=== PATIENT | female | born 2000 | race Caucasian/White ===

== ENCOUNTER 2020-09-24 15:32 | Inpatient (IN) | payer OTHER ==
[~2020-09-24] VITALS: Ht 170.2 cm; Wt 68.0 kg
[2020-09-24 17:07] LABS: HEMOGLOBIN 11.4 gm/dl (12.3-15.3); RED BLOOD COUNT 3.27 M/UL (4.00-5.10); WHITE BLOOD COUNT 9.9 K/UL (4.5-11.0)
[2020-09-24] MEDS ORDERED: PRENATAL VITAM1 EAC3 PO (19:46)
[2020-09-24] MEDS ORDERED: FERROUS SULFAT325 MG PO (19:47)
[2020-09-24] MEDS ORDERED: FOLIC ACID1 MG PO (19:48)
[2020-09-25] MEDS ORDERED: IBUPROFEN800 MG PO (13:41)
[2020-09-25] MEDS ORDERED: HYDROCODON-ACE1 EAC4 PO (13:41)
[2020-09-25] MEDS ORDERED: DOCUSATE SODIU100 MG PO (13:41)
[2020-09-26 06:41] LABS: HEMOGLOBIN 10.8 gm/dl (12.3-15.3)
== END 2020-09-27 16:58 | disposition home or self-care (01) | DRG 807 ==
LOC: GENOP 15:32 → OB 16:17
PROVIDERS: Obstetrics & Gynecology; ADMIT Obstetrics & Gynecology
PROC: 0U7C7ZZ Dilation of Cervix, Via Natural or Artificial Opening (ICD-10-PCS; principal; 2020-09-24)
PROC: 4A1HX4Z Monitoring of Products of Conception, Cardiac Electrical Activity, External Approach (ICD-10-PCS; 2020-09-24)
PROC: 10E0XZZ Delivery of Products of Conception, External Approach (ICD-10-PCS; 2020-09-25)
PROC: 0HQ9XZZ Repair Perineum Skin, External Approach (ICD-10-PCS; 2020-09-25)
DX: O36.5930 Maternal care for other known or suspected poor fetal growth, third trimester, not applicable or unspecified (principal); Z37.0 Single live birth; Z3A.38 38 weeks gestation of pregnancy; O70.0 First degree perineal laceration during delivery; Z20.822 Contact with and (suspected) exposure to COVID-19; Z28.21 Immunization not carried out because of patient refusal; Z87.891 Personal history of nicotine dependence
CPT/HCPCS: 36415; 80307; 81001; 82800; 85014; 85018; 85025; 90471; 90715; J0595; J2210; J2405; J2590; U0002